=== PATIENT | female | born 1970 | race Hispanic/Latino ===

== ENCOUNTER 2017-11-30 17:44 | Emergency (ER) | payer OTHER ==
--- OUTSIDE RECORDS SUMMARY | 2017-11-30 17:46 | XMS REPORT ---
:1970 Author Organization eClinicalWorks Care Team Providers Name Role Phone Rosalia Burch Provider Role Unavailable Allergies No Known Allergies Problems Problem Type Condition Code Onset Dates Condition Status Problem Increased thirst R63.1 Active Problem Sciatica of left side without back M54.32 Active pain Problem Cervical polyp N84.1 Active Problem Sciatic leg pain M54.30 Active Problem Allergic rhinitis, unspecified J30.9 Active Problem Circulation problem I99.9 Active Problem Sinus problem J34.9 Active Problem Swelling R60.9 Active Medications No Known Medications Results No Known Results Summary Purpose eClinicalWorks Submission
--- OUTSIDE RECORDS SUMMARY | 2017-11-30 17:46 | XMS REPORT ---
:1970 Author Organization eClinicalWorks Care Team Providers Name Role Phone Yuni Burchy Provider Role Unavailable Allergies, Adverse Reactions, Alerts Substance Reaction Event Type N.K.D.A. Info Not Available Non Drug Allergy Problems Problem Type Condition Code Onset Dates Condition Status Assessment Fatigue, unspecified type R53.83 Active Assessment Increased frequency of urination R35.0 Active Assessment Increased thirst R63.1 Active Assessment Habitual snoring R06.83 Active Problem Swelling R60.9 Active Problem Allergic rhinitis, unspecified J30.9 Active Problem Sinus problem J34.9 Active Assessment Swelling R60.9 Active Problem Circulation problem I99.9 Active Problem Increased thirst R63.1 Active Medications Medication Code System Code Instructions Start Date End Date Status Dosage Protease NDC 0 September 16, Active not defined Concentrate-HP 2018 Results Name Result Date Reference Range Unit Abnormality Flag TSH Thyroid Stimulating Hormone ----Thyroid Stimulating 3.26 [id number] 0.34-5.60 [iU]/L Hormone Summary Purpose eClinicalWorks Submission
--- OUTSIDE RECORDS SUMMARY | 2017-11-30 17:46 | XMS REPORT ---
:1970 Author Organization eClinicalWorks Care Team Providers Name Role Phone Keila Ga Provider Role Unavailable Allergies, Adverse Reactions, Alerts Substance Reaction Event Type N.K.D.A. Info Not Available Non Drug Allergy Problems Problem Type Condition Code Onset Dates Condition Status Assessment Women's annual routine Z01.419 Active gynecological examination Problem Increased thirst R63.1 Active Assessment General counselling and advice on Z30.09 Active contraception Assessment Encounter for screening mammogram Z12.31 Active for malignant neoplasm of breast Assessment Cervical polyp N84.1 Active Problem Sciatica of left side without back M54.32 Active pain Problem Cervical polyp N84.1 Active Problem Sciatic leg pain M54.30 Active Problem Allergic rhinitis, unspecified J30.9 Active Problem Circulation problem I99.9 Active Problem Sinus problem J34.9 Active Problem Swelling R60.9 Active Medications Medication Code Code Instructions Start End Status Dosage System Date Date Methocarbamol [facility] 52883370904 500 MG Orally October 12October Active 1 tablet every 8 hrs 2017 Protease ND 0 September 16, Active not Concentrate-HP 2017 defined Nmd-Pm-Qemvfxzqv [facility] [id number] 0.18/0.215/0.25 Active 1 tablet MG-25 MCG Orally Once a day Results No Known Results Summary Purpose eClinicalWorks Submission
--- OUTSIDE RECORDS SUMMARY | 2017-11-30 17:46 | XMS REPORT ---
:1970 Author Organization eClinicalWorks Care Team Providers Name Role Phone Rosalia Burch Provider Role Unavailable Allergies No Known Allergies Problems Problem Type Condition Code Onset Dates Condition Status Problem Swelling R60.9 Active Problem Allergic rhinitis, unspecified J30.9 Active Problem Sinus problem J34.9 Active Problem Circulation problem I99.9 Active Problem Increased thirst R63.1 Active Medications No Known Medications Results No Known Results Summary Purpose eClinicalWorks Submission
--- OUTSIDE RECORDS SUMMARY | 2017-11-30 17:46 | XMS REPORT ---
:1970 Author Organization eClinicalWorks Care Team Providers Name Role Phone Keila Ga Provider Role Unavailable Allergies, Adverse Reactions, Alerts Substance Reaction Event Type N.K.D.A. Info Not Available Non Drug Allergy Problems Problem Type Condition Code Onset Dates Condition Status Assessment Encounter for insertion of mirena Z30.430 Active IUD Problem Increased thirst R63.1 Active Problem Sciatica of left side without back M54.32 Active pain Problem Cervical polyp N84.1 Active Problem Sciatic leg pain M54.30 Active Problem Allergic rhinitis, unspecified J30.9 Active Problem Circulation problem I99.9 Active Problem Sinus problem J34.9 Active Problem Swelling R60.9 Active Medications Medication Code Code Instructions Start End Status Dosage System Date Date Vgo-Ge-Ejsnssk [facility] [place] 82577992396 0.18/0.215/0.25 Inactive 1 tablet la MG-25 MCG Orally Once a day Protease NDC 0 September 16, Active not Concentrate-HP 2017 defined Results Name Result Date Reference Range Unit Abnormality Flag TEST URINE URINALYSIS AUTO W/O SCOPE (90548) ----PROTEIN neg [id number] ----pH 6.0 [id number] ----NIT neg [id number] ----JENNY neg [id number] ----URO 0.2 [id number] ----SPECIFIC GRAVITY 1.025 [id number] ----BLO 1+ [id number] ----BILIRUBIN neg [id number] ----KETONES neg [id number] ----GLUCOSE neg [id number] Summary Purpose eClinicalWorks Submission
--- OUTSIDE RECORDS SUMMARY | 2017-11-30 17:46 | XMS REPORT ---
:1970 Author Organization eClinicalWorks Care Team Providers Name Role Phone Rosalia Burch Provider Role Unavailable Allergies, Adverse Reactions, Alerts Substance Reaction Event Type N.K.D.A. Info Not Available Non Drug Allergy Problems Problem Type Condition Code Onset Dates Condition Status Assessment Radiculopathy of leg M54.10 Active Assessment Sciatica of left side without back M54.32 Active pain Problem Sciatica of left side without back M54.32 Active pain Problem Circulation problem I99.9 Active Problem Sciatic leg pain M54.30 Active Problem Swelling R60.9 Active Problem Allergic rhinitis, unspecified J30.9 Active Problem Increased thirst R63.1 Active Problem Sinus problem J34.9 Active Medications Medication Code Code Instructions Start End Status Dosage System Date Date Protease NDC 0 September 16, Active not Concentrate-HP 2017 defined Methocarbamol NDC 25559497183 500 MG Orally October 12October Active 1 tablet every 8 hrs 2017 Results Name Result Date Reference Range Unit Abnormality Flag Lumbar Spine 3 Views Summary Purpose eClinicalWorks Submission
--- NOTE | 2017-11-30 18:15 | EDPHYS ---
Physician Documentation [facility] Name: Rebeka Black Age: 47 yrs Sex: Female : 1970 Arrival Date: 11/30/2017 Time: 17:46 Bed 19 Private MD: Rosi Burch ED Physician Jaylen Monet HPI: 11/30 18:10 This 47 yrs old Female presents to ER via Ambulatory with complaints of Head jr8 Swelling. 18:10 The patient complains of pain to the left base of the skull. The patient describes the jr8 headache as a pressure. Onset: The symptoms/episode began/occurred acutely, 1 week(s) ago. Associated signs and symptoms: The patient has no apparent associated signs or symptoms. Severity of symptoms: At its worst the pain was mild. The symptoms are alleviated by nothing. the symptoms are aggravated by movement. The patient has not experienced similar symptoms in the past. The patient has not recently seen a physician. Patient stated that when she lays down at night had left skull base pain and pressure. Worse with movement. Feels better when she is off of it and up throughout the day. Has tried muscle relaxant without relief . 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 - Social history:: Smoking status: Patient/guardian denies using tobacco. - Ebola Screening: : No symptoms or risks identified at this time. ROS: 18:10 Eyes: Negative for injury, pain, redness, and discharge, ENT: Negative for injury, jr8 pain, and discharge, Neck: Negative for injury, pain, and swelling, Cardiovascular: Negative for chest pain, palpitations, and edema, Respiratory: Negative for shortness of breath, cough, wheezing, and pleuritic chest pain, Abdomen/GI: Negative for abdominal pain, nausea, vomiting, diarrhea, and constipation, Back: Negative for injury and pain, MS/Extremity: Negative for injury and deformity, Skin: Negative for injury, rash, and discoloration. 18:10 Neuro: Positive for headache, Negative for altered mental status, dizziness, gait disturbance, hearing loss, loss of consciousness, numbness, seizure activity, speech changes, syncope, near syncope, tingling, tinnitus, tremor, visual changes, weakness. Exam: 18:10 Head/Face: Normocephalic, atraumatic. Eyes: Pupils equal round and reactive to light, jr8 extra-ocular motions intact. Lids and lashes normal. Conjunctiva and sclera are non-icteric and not injected. Cornea within normal limits. Periorbital areas with no swelling, redness, or edema. ENT: Nares patent. No nasal discharge, no septal abnormalities noted. Tympanic membranes are normal and external auditory canals are clear. Oropharynx with no redness, swelling, or masses, exudates, or evidence of obstruction, uvula midline. Mucous membranes moist. Cardiovascular: Regular rate and rhythm with a normal S1 and S2. No gallops, murmurs, or rubs. Normal PMI, no JVD. No pulse deficits. Respiratory: Lungs have equal breath sounds bilaterally, clear to auscultation and percussion. No rales, rhonchi or wheezes noted. No increased work of breathing, no retractions or nasal flaring. Abdomen/GI: Soft, non-tender, with normal bowel sounds. No distension or tympany. No guarding or rebound. No evidence of tenderness throughout. Back: No spinal tenderness. No costovertebral tenderness. Full range of motion. Skin: Warm, dry with normal turgor. Normal color with no rashes, no lesions, and no evidence of cellulitis. MS/ Extremity: Pulses equal, no cyanosis. Neurovascular intact. Full, normal range of motion. Neuro: Awake and alert, GCS 15, oriented to person, place, time, and situation. Cranial nerves II-XII grossly intact. Motor strength 5/5 in all extremities. Sensory grossly intact. Cerebellar exam normal. Normal gait. 18:10 Neck: External neck: tenderness, that is mild, of the occiput and left base of the skull, C-spine: appears grossly normal, Thyroid: appears normal, Trachea: is midline with no obvious abnormalities, ROM/movement: pain, that is mild, with any movement, Lymph nodes: no appreciated lymphadenopathy. Vital Signs: 17:50 BP 134 / 71; Pulse 73; Resp 16 S; Temp 98.7(O); Pulse Ox 97% on R/A; Weight 64.41 kg aa5 (R); Height 5 ft. 1 in. (154.94 cm) (R); Pain 510; 17:50 Body Mass Index 26.83 (64.41 kg, 154.94 cm) aa5 MDM: 17:54 Patient medically screened. jr8 18:10 Data reviewed: vital signs, nurses notes, and as a result, I will discharge patient. jr8 Data interpreted: Pulse oximetry: on room air is 97 %. Interpretation: normal. Counseling: I had a detailed discussion with the patient and/or guardian regarding: the historical points, exam findings, and any diagnostic results supporting the discharge/admit diagnosis, the need for outpatient follow up, a family practitioner, to return to the emergency department if symptoms worsen or persist or if there are any questions or concerns that arise at home. ED course: Patient with point tenderness along the left skull base on the musculoskeletal region. No dizziness, visual disturbances or global headache. Will try NSAID and other pain medicine. If worse to come back . Administered Medications: No medications were administered Disposition: 12/01 12:09 Co-signature as Attending Physician, Jaylen Monet MD I agree with the assessment and maryanne plan of care. Disposition: 11/30/17 18:14 Discharged to Home. Impression: Muscle spasm. - Condition is Stable. - Discharge Instructions: Muscle Cramps and Spasms. - Prescriptions for Ibuprofen 800 mg Oral Tablet - take 1 tablet by ORAL route every 8 hours As needed take with food; 30 tablet. Ultracet 37.5- 325 mg Oral Tablet - take 1 tablet by ORAL route every 6 hours - for up to 5 days; do not exceed 8 tablets per day.; 30 tablet. - Medication Reconciliation Form, Thank You Letter, Antibiotic Education, Prescription Opioid Use form. - Follow up: Rosi Burch; When: 1 - 2 days; Reason: Recheck today's complaints, Continuance of care, Re-evaluation by your physician. - Problem is new. - Symptoms have improved. Signatures: Jaylen Monet MD MD cha Martinez, Eric em1 Maddy Garcia, RN RN aa5 Maxim Myers PA PA jr8 Corrections: (The following items were deleted from the chart) 11/30 18:29 18:14 11/30/2017 18:14 Discharged to Home. Impression: Muscle spasm. Condition is em1 Stable. Forms are Medication Reconciliation Form, Thank You Letter, Antibiotic Education, Prescription Opioid Use. Follow up: Rosi Burch; When: 1 - 2 days; Reason: Recheck today's complaints, Continuance of care, Re-evaluation by your physician. Problem is new. Symptoms have improved. jr8
--- NOTE | 2017-11-30 18:15 | ER ---
Nurse's Notes [facility] Name: Rebeka Black Age: 47 yrs Sex: Female : 1970 Arrival Date: 11/30/2017 Time: 17:46 Bed 19 Private MD: Rosi Burch Diagnosis: Muscle spasm Presentation: 11/30 17:49 Presenting complaint: Patient states: "the left side of the back of my head has been aa5 swollen for about a week and when I wake up in the mornings my head hurts". Transition of care: patient was not received from another setting of care. Onset of symptoms was November 2017. Risk Assessment: Do you want to hurt yourself or someone else? Patient reports no desire to harm self or others. Initial Sepsis Screen: Does the patient meet any 2 criteria? No. Patient's initial sepsis screen is negative. Does the patient have a suspected source of infection? No. Patient's initial sepsis screen is negative. Care prior to arrival: None. 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 - Social history:: Smoking status: Patient/guardian denies using tobacco. - Ebola Screening: : No symptoms or risks identified at this time. Screenin:10 Abuse screen: Denies threats or abuse. Denies injuries from another. Nutritional ch screening: No deficits noted. Tuberculosis screening: No symptoms or risk factors identified. 18:10 Fall Risk None identified. ch Assessment: 18:20 General: Appears in no apparent distress. comfortable, Behavior is calm, cooperative, ch appropriate for age. Pain: Complains of pain in left base of the skull Pain currently is 6 out of 10 on a pain scale. at worst was 9 out of 10 on a pain scale. Neuro: No deficits noted. Respiratory: No deficits noted. Derm: No signs and/or symptoms reported regarding the dermatologic system. Musculoskeletal: Circulation, motion, and sensation intact. Capillary refill < 3 seconds, in bilateral fingers. toes. Vital Signs: 17:50 BP 134 / 71; Pulse 73; Resp 16 S; Temp 98.7(O); Pulse Ox 97% on R/A; Weight 64.41 kg aa5 (R); Height 5 ft. 1 in. (154.94 cm) (R); Pain 5/10; 17:50 Body Mass Index 26.83 (64.41 kg, 154.94 cm) aa5 ED Course: 17:46 Patient arrived in ED. mr 17:47 Rosi Burch is Private Physician. mr 17:50 Triage completed. aa5 17:50 Arm band placed on. aa5 17:54 Maxim Myers PA is PHCP. jr8 17:54 Jaylen Monet MD is Attending Physician. jr8 18:10 No apparent distress. Resting quietly. ch 18:10 Patient has correct armband on for positive identification. Bed in low position. ch 18:10 No provider procedures requiring assistance completed. Patient did not have IV access ch during this emergency room visit. 18:12 Radha Gray, TERE is Primary Nurse. 18:14 Rosi Burch is Referral Physician. jr8 Administered Medications: No medications were administered Outcome: 18:10 Discharged to home ambulatory. ch 18:10 Condition: stable 18:10 Discharge instructions given to patient, Instructed on discharge instructions, follow up and referral plans. medication usage, Demonstrated understanding of instructions, follow-up care, medications, Prescriptions given X 2. 18:14 Discharge ordered by . jr8 18:29 Patient left the ED. em1 Signatures: Radha Gray, TERE CARRANZA Rebeka Sood mr DukesBro em1 Maddy Garcia RN RN aa Maxim Myers PA PA jr8 Corrections: (The following items were deleted from the chart) 17:51 17:49 Presenting complaint: Patient states: "the left side of the back of my head has aa5 been swollen for about a week and when I wake up in the mornings my head hurts". aa5 17:52 17:49 Acuity: CAMILLA 4 aa5 aa5
== END 2017-11-30 18:29 | disposition home or self-care (01) ==
LOC: ER 17:44
DX: M62.838 Other muscle spasm (principal)
CPT/HCPCS: 99282